=== PATIENT | male | born 1995 | race Caucasian/White ===

== ENCOUNTER → 2019-04-25 | Outpatient (CLI) | payer OTHER ==
[~2019-04-25] MED LIST: ONDA8TAB9 PO; PANT40TA2 PO
== END ==
LOC: CARD 10:22
PROVIDERS: ATTEND Internal Medicine Cardiovascular Disease
DX: I07.1 Rheumatic tricuspid insufficiency (principal); E66.9 Obesity, unspecified
CPT/HCPCS: 93306

== ENCOUNTER → 2019-05-02 | Outpatient (CLI) | payer OTHER ==
[2019-05-02 12:50] VITALS: BP 125/80
--- NOTE | 2019-05-02 12:50 | Cardiology Stress Test Report ---
Stress Test Report Date of Procedure/Referring: Date of Procedure: May 02, 2019 PCP Barbara Connolly MD Admitting Physician Radhames Youssef - [facility] Of Indications: Syncope Baseline Heart Rate: 88 Baseline Blood Pressure: Blood Pressure Systolic: 125 Blood Pressure Diastolic: 80 Baseline EKG: Baseline EKG: normal sinus rhythm Summary/Conclusion: Summary: In summary, the patient started exercising with a baseline heart rate, blood pressure and EKG mentioned above Patient was able to exercise for a total of 7:30 minutes on Mingo protocol, 9.1 METs Maximum heart rate 180 Maximum blood pressure 175/46 Stress EKG Minimal nondiagnostic changes Recovery EKG Return to baseline Conclusion: 1. Good exercise tolerance for a total of 7:30 minutes on Mingo protocol, 9.1 METs, achieving 91 percent of maximum expected heart rate 2. Minimal nondiagnostic EKG changes with exercise returned to baseline during recovery 3. No arrhythmia was noted BARBARA CONNOLLY MD May 02, 2019 12:50
== END ==
LOC: CARD 11:04
PROVIDERS: ATTEND Internal Medicine Cardiovascular Disease
DX: R55 Syncope and collapse (principal); E66.01 Morbid (severe) obesity due to excess calories
CPT/HCPCS: 93017

== ENCOUNTER → 2019-05-04 | Outpatient (CLI) | payer OTHER ==
[~2019-05-04] VITALS: Ht 187.9 cm; Wt 106.3 kg
[2019-05-04] VITALS (23 sets, daily range): BP systolic 93–152; BP diastolic 52–94
[~2019-05-04] MED LIST changes: +ATROPINE INJECTION 1 MG/10 ML SYR (ABBOTT) ONE; +NS IV 1000 ML 0 ML ONE; +NS IV 1000 ML 1,000 ML IV ONE; +NS IV 1000 ML 1,000 ML ONE
--- NOTE | 2019-05-04 14:46 | Cardiology Tilt Table Test ---
Cardiology-Tilt Table Test Tilt Table Test Date 05/04/19 Baseline Vitals Vital Signs Date Time Temp Pulse Resp B/P (MAP) Pulse Ox O2 Delivery O2 Flow Rate FiO2 05/04/19 10:57 100 18 144/92 (109) 98 Room Air Vital Signs VS - Last 72 Hours, by Label 05/04/19 05/04/19 05/04/19 05/04/19 10:57 11:34 11:35 11:36 Pulse 100 98 93 97 Resp 18 18 18 18 B/P (MAP) 144/92 (109) 122/82 (95) 129/78 (95) Pulse Ox 98 98 95 94 O2 Delivery Room Air Room Air Room Air Room Air 05/04/19 05/04/19 05/04/19 05/04/19 11:37 11:38 11:39 11:40 Pulse 96 103 96 96 Resp 18 18 18 18 B/P (MAP) 136/78 (97) 137/84 (101) 142/85 (104) 132/78 (96) Pulse Ox 95 95 95 95 O2 Delivery Room Air Room Air Room Air Room Air 05/04/19 05/04/19 05/04/19 05/04/19 11:41 11:42 11:43 11:44 Pulse 101 101 111 90 Resp 18 18 18 18 B/P (MAP) 133/93 (106) 128/80 (96) 134/84 (101) 152/94 (113) Pulse Ox 95 95 98 97 O2 Delivery Room Air Room Air Room Air Room Air 05/04/19 05/04/19 05/04/19 05/04/19 11:45 11:46 11:47 11:48 Pulse 93 96 87 92 Resp 18 18 18 18 B/P (MAP) 141/94 (110) 148/84 (105) 136/66 (89) 145/67 (93) Pulse Ox 96 96 96 96 O2 Delivery Room Air Room Air Room Air Room Air 05/04/19 05/04/19 05/04/19 05/04/19 11:49 11:50 11:51 11:53 Pulse 130 140 135 135 Resp 18 18 18 18 B/P (MAP) 112/70 (84) 93/70 (78) 115/52 (73) Pulse Ox 96 96 95 95 O2 Delivery Room Air Room Air Room Air Room Air 10/23/05/04/19 05/04/19 05/04/19 11:54 11:56 11:58 12:01 Pulse 79 82 79 85 Resp 18 18 18 18 B/P (MAP) 132/78 (96) 132/82 (99) 125/76 (92) 129/80 (96) Pulse Ox 95 97 97 97 O2 Delivery Room Air Room Air Room Air Room Air 05/04/19 12:06 Pulse 79 Resp 18 B/P (MAP) 134/84 Pulse Ox 97 O2 Delivery Room Air Patient was tilted to 75 degrees for [10] minutes, then returned to supine position, given [2] sublingual nitroglycerin tablets, then tilted again to 75 degrees for [5] minutes. During test, patient was: had a syncopal event at minute (4, stage 2 with HR 135 BP 93/70 Rhythm was sinus tachycardia) In Conclusion;: Vasovagal Syncope with (Vasodepressor Syncope) Patient was instructed to increase fluid intake, wear DIEUDONNE hose. Follow up in 2-4 weeks in our office. This is Consuelo Elias PA-C, acting as a scribe for . CONSUELO PARTIDA May 04, 2019 14:46
== END ==
LOC: CARD 04-27 10:35
PROVIDERS: ATTEND Internal Medicine Cardiovascular Disease
DX: E66.9 Obesity, unspecified (principal); R00.0 Tachycardia, unspecified; R07.9 Chest pain, unspecified; R55 Syncope and collapse; Z90.89 Acquired absence of other organs
CPT/HCPCS: 93660

== ENCOUNTER 2019-07-13 | Outpatient (RCR) | payer MEDICAID ==
[~2019-07-13] MED LIST changes: -ATROPINE INJECTION 1 MG/10 ML SYR (ABBOTT) ONE; -NS IV 1000 ML 0 ML ONE; -NS IV 1000 ML 1,000 ML IV ONE; -NS IV 1000 ML 1,000 ML ONE
== END 2019-09-25 | disposition home or self-care (01) ==
LOC: CARD
PROVIDERS: ATTEND Physician Assistant
DX: R55 Syncope and collapse (principal); R06.83 Snoring; E66.01 Morbid (severe) obesity due to excess calories
CPT/HCPCS: 93270

== ENCOUNTER → 2020-02-09 | Outpatient (CLI) | payer MEDICAID ==
--- NOTE | 2020-02-09 17:49 | Diagnostic Imaging Report ---
PROCEDURE: MRI lumbar spine. TECHNIQUE: Multiplanar, multisequence MRI of the lumbar spine was performed without contrast. INDICATION: Back pain. COMPARISON: There are no prior studies available for comparison. FINDINGS: The T2 parasagittal images show the vertebral body heights and alignment to be generally within normal limits. The intervertebral disc spaces are fairly well maintained. The thecal sac is generous and there is no evidence for spinal stenosis or nerve root encroachment at any level. There is no abnormal signal arising from the cord or the vertebral bodies to indicate an acute abnormality. There is no sign of a paraspinal mass. There is a moderate amount of epidural lipomatosis about the lower thecal sac. IMPRESSION: 1. There is no evidence for high-grade central stenosis or neuroforaminal narrowing at any level. 2. There is no sign of an acute bony abnormality or of a cord lesion. Dictated by: Dictated on workstation # [id number]
== END ==
LOC: RAD 12:30
PROVIDERS: ATTEND Nurse Practitioner Family
DX: M54.41 Lumbago with sciatica, right side (principal); G47.00 Insomnia, unspecified
CPT/HCPCS: 72148